=== PATIENT | male | born 1985 | race Caucasian/White ===

== ENCOUNTER 2023-01-04 15:31 | Emergency (ER) | payer BC ==
[~2023-01-04] VITALS: Ht 182.9 cm; Wt 93.0 kg
[2023-01-04] MEDS ORDERED: TRAM-351 PO (17:03)
[2023-01-04] MEDS ORDERED: KETO10TA2 PO (17:03)
[2023-01-04 17:11] VITALS: BP 131/69; TEMP 97.9; O2SAT 99
== END 2023-01-04 17:12 | disposition home or self-care (01) ==
LOC: ER 15:31
DX: S92.352A Displaced fracture of fifth metatarsal bone, left foot, initial encounter for closed fracture (principal); X50.1XXA Overexertion from prolonged static or awkward postures, initial encounter; Y93.89 Activity, other specified; Y92.89 Other specified places as the place of occurrence of the external cause; Y99.8 Other external cause status
CPT/HCPCS: 73630-TC